=== PATIENT | female | born 1970 | race Caucasian/White ===

== ENCOUNTER → 2020-03-09 18:07 | Outpatient (CLI) | payer OTHER, SELFPAY ==
[2019-11-06 13:57] VITALS: BMI 45.2
== END ==
PROVIDERS: PCP Student in an Organized Health Care Education/Training Program
DX: Z11.59 Encounter for screening for other viral diseases (principal)
CPT/HCPCS: 87635; G2023; U0003

== ENCOUNTER → 2021-08-17 | Outpatient (CLI) | payer OTHER, SELFPAY ==
--- NOTE | 2021-08-17 | BRBX_PTH ---
PATIENT: ZONIA DEL ANGEL LOC: [facility] U#:[id number] AGE/SX: 50/F ROOM: RE08/17/[address]: Dr. Yamila Gamboa MD : [id number] BED: DIS: 08/17/2021 SPEC #: [id number] RECD: 08/17/21 13:09 STATUS: ELO REQ #: [id number] JUAN C: 08/17/21 00:[address]: Yamila Gamboa DEPT: SURGICAL PATHOLOGY RECD BY: Morgan Amaral ENTERED: 08/17/21 13:09 SP TYPE: BREAST BX OTHR DR: Dr. Moise Rosado, DO Tissues: Left breast, NOS Procedures: Surgery Specimen Level IV HEADER OPERATION: Left breast stereotactic biopsy PRE-OP DIAGNOSIS: Grouped pleomorphic calcifications in left breast at 10 o?clock posterior depth TISSUE SUBMITTED: Left breast core tissue ISCHEMIC TIME: 1 minute FIXATION TIME: 8 hours MICROSCOPIC DIAGNOSIS Left breast, core biopsy: Fibroadenoma. Focal intraductal hyperplasia without atypia. Mild fibrocystic change. Rare microcalcifications. No evidence of malignancy. AM:jesus 08/18/2021 MICROSCOPIC DESCRIPTION Slides are reviewed. GROSS DESCRIPTION Received is one container labeled with the patient's name and not further designated. The specimen consists of multiple irregular and elongated fragments of yellow-fox soft tissue that in aggregate measure 5.5 x 3 x 0.2 cm. The specimen is totally submitted in two cassettes. / AM:jesus 08/17/21 TC:5 CPT: 54611
--- NOTE | 2021-08-17 19:09 | OP.PCM_ITS ---
Report of Operation Date of Procedure: 08/17/21 Pre-Operative Diagnosis: abnormal calcifications on left breat mammograms Post-Operative Diagnosis: same Surgery/Procedure Performed:: left stereotactic breast biopsy Description of Surgical Findings:: these are vascular calcifications Surgeon: Yamila Gamboa Type of Anesthesia: Local Specimen's removed: left breast tissue Estimated Blood Loss (mL): < 10 ml Description of Procedure: After informed consent was given, the patient was brought into the Breast Biopsy suite. Appropriate time out protocol was followed. The patient was placed in the prone position on the stereotactic biopsy table. The patient?s left breast was then placed in the opening at the head of the biopsy table. A precision aircraft structure assembler compression mammogram was then obtained in the CC view. The suspicious radiological lesion was thus identified. Stereo pictures of the lesion were then taken for XYZ coordinates. The Mammotome biopsy stylus was then positioned where it would be entering into the patient?s breast. The skin at this site was then cleansed with a surgical skin pr eparation. The skin and subcutaneous tissues at this site were then infiltrated with 1% xylocaine. A small skin incision was made with an 11 blade scalpel. The biopsy stylus was then positioned into the patient?s breast at the proper coordinates of depth. Using the Mammotome vacuum-assist device, several core samples of breast tissue were obtained. A specimen mammogram was the obtained. It revealed that the abnormal calcifications were within the specimen. I reviewed this personally and concluded that the tissue sampling was adequate. A hemostatic marker clip was then placed into the biopsy cavity and a precision aircraft structure assembler film revealed that it was properly deployed. The patient was then placed in the supine position and pressure was applied to the breast until no active bleeding was noted. Steristrips were applied to reapproximate the skin. A unilateral mammogram in the CC and MLO view were then taken which revealed that the marker clip was in the same area as the previous suspicious lesion. The patient tolerated the procedure well and was discharged from the Breast Biopsy suite in good condition. Complications none noted
== END | disposition home or self-care (01) ==
LOC: BIRAD 11:03
PROVIDERS: PCP Student in an Organized Health Care Education/Training Program; Referring Provider Surgery; Visit Provider Surgery
DX: D24.2 Benign neoplasm of left breast (principal); E11.9 Type 2 diabetes mellitus without complications; I10 Essential (primary) hypertension; E78.00 Pure hypercholesterolemia, unspecified; G47.33 Obstructive sleep apnea (adult) (pediatric); K21.9 Gastro-esophageal reflux disease without esophagitis; E55.9 Vitamin D deficiency, unspecified; E66.9 Obesity, unspecified; R92.8 Other abnormal and inconclusive findings on diagnostic imaging of breast
CPT/HCPCS: 19081; 88305; J7050; A4648